=== PATIENT | female | born 1995 | race Caucasian/White ===

== ENCOUNTER 2017-08-07 00:46 | Emergency (ER) | payer SELFPAY ==
[~2017-08-07] VITALS: Ht 165.1 cm; Wt 75.0 kg
[2017-08-07 01:17] VITALS: BP 123/70; PULSE 84; RESP 16; TEMP 98.6; O2SAT 96
--- NOTE | 2017-08-07 03:29 | PD ---
HPI Chief Complaint: Fall Time Seen by Provider: 03:24 Travel History International Travel<30 days: No Contact w/Intl Traveler<30days: No Traveled to known affect area: No History of Present Illness HPI Patient is a 21-year-old female presents emergency department for evaluation of laceration to her chin and left knee pain. Patient admits to being drunk tonight and drinking as she is on spring. She is a coming by her 2 friends were clinically sober. She states that she just tripped and then "face planted". Her main concern is her left knee which is been operated on before. She also has a laceration to the underside of her chin. Denies any loss of consciousness head pain neck pain back pain chest pain or abdominal pain. Symptoms happened just prior to arrival, context and associated signs symptoms as above, pain is mild. [facility] Past Medical History Immunizations Current: Yes Tetanus Vaccination: < 5 Years Influenza Vaccination: Yes ?: Unknown LMP: 07/30/17 Social History Alcohol Use: No Tobacco Use: No Substance Use: No Allergies-Medications (Allergen,Severity, Reaction): Coded Allergies: morphine (Verified Allergy, Severe, Anaphylaxis, 08/07/17) Review of Systems Except as stated in HPI: all other systems reviewed are Neg Physical Exam Narrative GENERAL: Well-developed well-nourished no obvious distress SKIN: Focused skin assessment warm/dry. There is no bruising or laceration or contusion in her chest abdomen or pelvis. HEAD: No nevarez signs no raccoons eyes, patient does have a 2 cm laceration on the underside of her chin near the angle. otherwise it is atraumatic.. Normocephalic. EYES: Pupils equal and round. No scleral icterus. No injection or drainage. ENT: No nasal bleeding or discharge. Mucous membranes pink and moist. NECK: Trachea midline. No JVD. CARDIOVASCULAR: Regular rate and rhythm. No murmur appreciated. RESPIRATORY: No accessory muscle use. Clear to auscultation. Breath sounds equal bilaterally. GASTROINTESTINAL: Abdomen soft, non-tender, nondistended. Hepatic and splenic margins not palpable. MUSCULOSKELETAL: No obvious deformities. No clubbing. No cyanosis. No edema. Postoperative scarring and some mild swelling about the left knee with some contusion, there is no gross deformity, tender to palpation. Otherwise her extremities are atraumatic. Her knee is technically excludable by [place] knee rule 2+ bilateral equal pulses in all 4 extremities, compartments are soft. No midline CT or L-spine tenderness. NEUROLOGICAL: Awake and alert. No obvious cranial nerve deficits. Motor grossly within normal limits. Normal speech. PSYCHIATRIC: Appropriate mood and affect; insight and judgment normal. Data Data Last Documented VS Orders Orders Ct Brain W/O Iv Contrast(Rout) (08/07/17 ) Ct Cerv Spine W/O Contrast (08/07/17 ) Ibuprofen (Motrin) (08/07/17 04:00) Ed Discharge Order (08/07/17 05:30) [facility] Medical Decision Making Medical Screen Exam Complete: Yes Emergency Medical Condition: Yes Differential Diagnosis Head injury, neck injury, knee injury, laceration. Narrative Course Patient room to the emergency department, CT head and C-spine negative, the patient's chief complaint to me was her left knee and a knee x-ray was ordered an x-ray tech stated that she was refusing the knee x-ray. She is able to ambulate on her knee. Laceration was approximated, discussed with her the dangers of drinking underage. At this time she is stable for discharge and her clinically sober friends are going to get her home. Diagnosis Primary Impression: Closed head injury Additional Impressions: Fall Laceration of chin Knee pain Additional Instructions: Return to ER in 5-7 days for stitches removal. Disposition: 01 DISCHARGE HOME Condition: Stable Jan Still MD Aug 07, 2017 03:29
[2017-08-07] MEDS ORDERED: IBUPROFEN 600 MG TAB PO ONE (04:00)
[2017-08-07 04:13] VITALS: BP 108/56; PULSE 82; RESP 16; TEMP 98; O2SAT 98
--- NOTE | 2017-08-07 04:39 | PD ---
Data Data Last Documented VS Vital Signs Date Time Temp Pulse Resp B/P (MAP) Pulse Ox O2 Delivery O2 Flow Rate FiO2 08/07/17 04:13 98.0 82 16 108/56 (73) 98 Room Air Orders Orders Ct Brain W/O Iv Contrast(Rout) (08/07/17 ) Ct Cerv Spine W/O Contrast (08/07/17 ) Knee, Complete (4vws) (08/07/17 ) Ibuprofen (Motrin) (08/07/17 04:00) MDM Medical Record Reviewed: Yes Supervised Visit with MAIA: No Procedures Procedure Narrative LACERATION LOCATION: Chin LENGTH: 1.5 cm NUMBER OF STITCHES/EMMA: 5 REPAIR: The area of the laceration was prepped with Betadine and sterilely draped. The laceration was infiltrated with [1% lidocaine with epinephrine. The wound was copiously irrigated and explored without evidence of foreign body , tendon injury or neurovascular injury. The wound was closed using 6-0 Prolene simple interrupted. This was a [single layer repair. A sterile dressing was applied. The patient was advised to keep the dressing clean and dry. Patient tolerated the procedure well. Boyd Brock Aug 07, 2017 04:39
--- NOTE | 2017-08-07 04:55 | RADRPT ---
EXAM DATE/TIME: 08/07/2017 03:37 [facility] COMPARISON: No previous studies available for comparison. INDICATIONS : Trauma. Fall. RADIATION DOSE: 56.35 CTDIvol (mGy) MEDICAL HISTORY : None SURGICAL HISTORY : None. ENCOUNTER: Initial ACUITY: 1 day PAIN SCALE: 5/10 LOCATION: cranial TECHNIQUE: Multiple contiguous axial images were obtained of the head. Using automated exposure control and adj ustment of the mA and/or kV according to patient size, radiation dose was kept as low as reasonably a chievable to obtain optimal diagnostic quality images. DICOM format image data is available electro nically for review and comparison. FINDINGS: CEREBRUM: The ventricles are normal for age. No evidence of midline shift, mass lesion, hemorrhage or acute in farction. No extra-axial fluid collections are seen. POSTERIOR FOSSA: The cerebellum and brainstem are intact. The 4th ventricle is midline. The cerebellopontine angle i s unremarkable. EXTRACRANIAL: The visualized portion of the orbits is intact. SKULL: The calvaria is intact. No evidence of skull fracture. CONCLUSION: Negative exam. Brennen Dejesus MD on August 07, 2017 at 4:53 Board Certified Radiologist. This report was verified electronically.
--- NOTE | 2017-08-07 04:58 | RADRPT ---
EXAM DATE/TIME: 08/07/2017 03:37 [facility] COMPARISON: No previous studies available for comparison. INDICATIONS : Trauma. Fall. RADIATION DOSE: 18.92 CTDIvol (mGy) MEDICAL HISTORY : None SURGICAL HISTORY : None. ENCOUNTER: Initial ACUITY: 1 day PAIN SCALE: 3/10 LOCATION: neck TECHNIQUE: Volumetric scanning of the cervical spine was performed. Multiplanar reconstructions in the sagittal, coronal and oblique axial planes were performed. Using automated exposure control and adjustment o f the mA and/or kV according to patient size, radiation dose was kept as low as reasonably achievable to obtain optimal diagnostic quality images. DICOM format image data is available electronically f or review and comparison. FINDINGS: Sagittal and coronal reconstructions show reversal of the lordotic curvature which may be positional. Minimal grade 1 anterolisthesis of C4 on 5 is probably physiologic in a young adult. Otherwise, vert ebral body heights are maintained without fracture. Spinal canal is widely patent C2-C3: The bony spinal canal is normal in size. No evidence of disc bulge or herniation. The neural forami na are bilaterally patent. C3-C4: The bony spinal canal is normal in size. No evidence of disc bulge or herniation. The neural forami na are bilaterally patent. C4-C5: The bony spinal canal is normal in size. No evidence of disc bulge or herniation. The neural forami na are bilaterally patent. C5-C6: The bony spinal canal is normal in size. No evidence of disc bulge or herniation. The neural forami na are bilaterally patent. C6-C7: The bony spinal canal is normal in size. No evidence of disc bulge or herniation. The neural forami na are bilaterally patent. C7-T1: The bony spinal canal is normal in size. No evidence of disc bulge or herniation. The neural forami na are bilaterally patent. CONCLUSION: 1. Reversal of the lordotic curvature which is probably positional. 2. Minimal grade 1 anterolisthesis of C4 on 5 is likely physiologic in a young adult. No fracture. Brennen Dejesus MD on August 07, 2017 at 4:54 Board Certified Radiologist. This report was verified electronically.
== END 2017-08-07 05:45 | disposition home or self-care (01) ==
LOC: NEPC 00:46
DX: S01.81XA Laceration without foreign body of other part of head, initial encounter (principal); M25.562 Pain in left knee; W01.0XXA Fall on same level from slipping, tripping and stumbling without subsequent striking against object, initial encounter
CPT/HCPCS: 12011; 70450; 72125